=== PATIENT | female | born 1955 | race Caucasian/White ===

== ENCOUNTER → 2019-03-09 | Day surgery (SDC) | payer OTHER ==
[~2019-03-09] MED LIST: Lactated Ringers 1,000 ML IV SCH; Propofol 200 MG/20 ML SDV IV ONE; Sodium Chloride 0.9% 1,000 ML IV SCH
--- NOTE | 2019-03-09 13:49 | OR ---
DATE OF OPERATION: 03/09/2019 PREOPERATIVE DIAGNOSIS: SCREENING COLONOSCOPY. POSTOPERATIVE DIAGNOSIS: SCREENING COLONOSCOPY. SURGEON: Deshawn Rios MD PROCEDURE: FULL-LENGTH COLONOSCOPY. ANESTHESIA: MAC via BEARING MACHINE OPERATOR. COMPLICATIONS: None. SPECIMEN: None. FINDINGS: Normal full-length colonoscopy. RECOMMENDATIONS: Followup colonoscopy every 10 years. INDICATIONS: The patient was in for routine physical. She is overdue for a screening colonoscopy. DESCRIPTION OF PROCEDURE: The patient was prepped and draped, placed in the left lateral decubitus position. A lubricated Olympus colonoscope was inserted and easily advanced to the cecum. Direct visualization of the ileocecal valve and appendiceal orifice was accomplished. The bowel prep was fine. Upon withdrawal of the scope throughout the entire length of the colon, I could find no signs of polyps, mass, ulcerations, or bleeding sites. No vascular abnormalities or signs of colitis. Very tortuous colon, but visualization was good. No gross diverticulosis seen. The rectal vault was benign. Retroflexion of the scope in the rectum showed no anal lesions. Air was suctioned, scope removed without complication. CARA/SARITA /[id number]
== END ==
LOC: CC.SDS 09:39
PROVIDERS: ATTEND Family Medicine
DX: Z12.11 Encounter for screening for malignant neoplasm of colon (principal); I10 Essential (primary) hypertension; E87.6 Hypokalemia; E53.8 Deficiency of other specified B group vitamins; F41.9 Anxiety disorder, unspecified; F32.9 Major depressive disorder, single episode, unspecified; E66.9 Obesity, unspecified; R79.0 Abnormal level of blood mineral; Z68.35 Body mass index [BMI] 35.0-35.9, adult; Z98.84 Bariatric surgery status; Z79.899 Other long term (current) drug therapy
CPT/HCPCS: J2704

== ENCOUNTER 2023-06-05 13:54 | Emergency (ER) | payer OTHER ==
[2023-06-05] MEDS ORDERED: Acetaminophen 500 MG Tab PO ONE (13:56)
[2023-06-05] MEDS ORDERED: Sodium Chloride 0.9% 1,000 ML IV ONE (14:18)
[2023-06-05 14:29] LABS: BASOPHILS ABSOLUTE AUTO 0.06 10^3/uL (0.00-0.50); BASOPHILS PERCENT AUTO 0.4 % (0-1); EOSINOPHILS ABSOLUTE AUTO 0.03 10^3/uL (0.00-1.50); EOSINOPHILS PERCENT AUTO 0.2 % (0-6); HEMATOCRIT 36.8 % (37.0-47.0); HEMOGLOBIN 12.2 g/dL (12.0-16.0); IMMATURE GRAN ABSOLUTE AUTO 0.04 10^3/uL (0.00-0.49); IMMATURE GRAN PERCENT AUTO 0.3 % (0.0-4.9); LYMPHOCYTES PERCENT AUTO 5.9 % (24-44); MEAN CORPUSCULAR HEMOGLOBIN 28.1 pg (27.0-32.0); MEAN CORPUSCULAR HGB CONC 33.2 g/dL (32.0-36.0); MEAN CORPUSCULAR VOLUME 84.8 fL (83.0-97.0); MONOCYTES ABSOLUTE AUTO 1.82 10^3/uL (0.00-1.50); NEUTROPHILS PERCENT AUTO 81.2 % (41-71); PLATELET COUNT,PLT 168 10^3/uL (150-400); RED BLOOD CELL COUNT 4.34 x10^6/uL (4.00-5.50); WHITE BLOOD CELL COUNT,WBC 15.2 10^3/uL (4.0-11.0)
[2023-06-05 14:49] LABS: ALBUMIN 3.4 g/dL (3.4-5.0); BILIRUBIN TOTAL 0.7 mg/dL (0.0-1.0); CALCIUM 8.4 mg/dL (8.4-10.1); CREATININE 1.2 mg/dL (0.6-1.0); EST CRCL DRUG DOSING (CG) 40.94 mL/min; POTASSIUM,K 3.5 mEq/L (3.5-5.0); PROTEIN TOTAL,TP 7.4 g/dL (6.4-8.2)
[2023-06-05 14:54] LABS: APPEARANCE,URINE CLEAR (CLEAR); BILIRUBIN,URINE NEGATIVE (NEGATIVE); COLOR,URINE YELLOW (YELLOW); GLUCOSE,URINE NEGATIVE (NEGATIVE); KETONES,URINE NEGATIVE (NEGATIVE); LEUKOCYTE ESTERASE,URINE NEGATIVE (NEGATIVE); NITRITE,URINE NEGATIVE (NEGATIVE); OCCULT BLOOD,URINE SMALL (NEGATIVE); PH,URINE 5.5 (4.5-8.0); PROTEIN,URINE 30 mg/dL (NEGATIVE); UROBILINOGEN,URINE 0.2 EU/dL (0.2-1.0)
[2023-06-05 15:04] LABS: BACTERIA,URINE OCCASIONAL /HPF (NOT SEEN); RBC,URINE 0-5 /HPF (0-5); SQUAMOUS EPITHELIAL CELLS,UR OCCASIONAL /HPF (NOT SEEN); WBC,URINE 0-5 /HPF (0-5)
[2023-06-05] MEDS ORDERED: Sodium Chloride 0.9% 10 ML Syringe FLUSH PRN (15:33)
[2023-06-05] MEDS ORDERED: Sodium Chloride 0.9% 1,000 ML IV SCH (15:45)
[2023-06-05] MEDS ORDERED: Levofloxacin/Dextrose 5%-Water 750 MG in Premix Bag 1 BAG IV ONE (18:29)
== END 2023-06-05 20:45 | disposition home or self-care (01) ==
LOC: CC.ED 13:54
DX: J18.9 Pneumonia, unspecified organism (principal); Z79.899 Other long term (current) drug therapy; Z20.822 Contact with and (suspected) exposure to COVID-19
CPT/HCPCS: 36415; 71046; 80053; 81001; 83605; 85025; 87040; 96361; 96365; 96366; 99284; 99284-25; A9270-GY; J1956; J7030; U0002

== ENCOUNTER 2023-10-27 06:27 | Emergency (ER) | payer OTHER ==
[2023-10-27] MEDS ORDERED: Sodium Chloride 0.9% 10 ML Syringe FLUSH PRN (06:44)
[2023-10-27 07:02] LABS: APPEARANCE,URINE SLIGHTLY CLOUDY (CLEAR); BILIRUBIN,URINE NEGATIVE (NEGATIVE); COLOR,URINE YELLOW (YELLOW); GLUCOSE,URINE 100 mg/dL (NEGATIVE); KETONES,URINE NEGATIVE (NEGATIVE); LEUKOCYTE ESTERASE,URINE SMALL (NEGATIVE); NITRITE,URINE POSITIVE (NEGATIVE); OCCULT BLOOD,URINE MODERATE (NEGATIVE); PROTEIN,URINE 100 mg/dL (NEGATIVE)
[2023-10-27 07:08] LABS: BASOPHILS ABSOLUTE AUTO 0.04 10^3/uL (0.00-0.50); BASOPHILS PERCENT AUTO 0.3 % (0-1); HEMATOCRIT 39.1 % (37.0-47.0); HEMOGLOBIN 12.7 g/dL (12.0-16.0); IMMATURE GRAN ABSOLUTE AUTO 0.04 10^3/uL (0.00-0.49); IMMATURE GRAN PERCENT AUTO 0.3 % (0.0-4.9); LYMPHOCYTES ABSOLUTE AUTO 0.81 10^3/uL (0.60-5.00); MEAN CORPUSCULAR HEMOGLOBIN 28.5 pg (27.0-32.0); MEAN CORPUSCULAR HGB CONC 32.5 g/dL (32.0-36.0); MEAN CORPUSCULAR VOLUME 87.7 fL (83.0-97.0); MONOCYTES ABSOLUTE AUTO 1.24 10^3/uL (0.00-1.50); MONOCYTES PERCENT AUTO 9.1 % (0-10); NEUTROPHILS ABSOLUTE AUTO 11.45 x10^3/uL (1.80-8.00); NEUTROPHILS PERCENT AUTO 84.3 % (41-71); PLATELET COUNT,PLT 153 10^3/uL (150-400); RED BLOOD CELL COUNT 4.46 x10^6/uL (4.00-5.50); WHITE BLOOD CELL COUNT,WBC 13.6 10^3/uL (4.0-11.0)
[2023-10-27 07:10] LABS: BACTERIA,URINE MANY /HPF (NOT SEEN); EPITHELIAL CELLS,URINE NOT SEEN /HPF (NOT SEEN); WBC,URINE >100 /HPF (0-5)
[2023-10-27] MEDS: HYDROmorphone 0.5 MG/0.5 ML Syringe IVPUSH ONE (07:20)
[2023-10-27] MEDS: Ondansetron 4 MG/2 ML SDV IVPUSH STA (07:21)
[2023-10-27] MEDS: Sodium Chloride 0.9% 1,000 ML IV ONE (07:28)
[2023-10-27 07:29] LABS: ALBUMIN 3.4 g/dL (3.4-5.0); BILIRUBIN TOTAL 0.8 mg/dL (0.0-1.0); C-REACTIVE PROTEIN 7.72 mg/dL (<=0.50); CALCIUM 8.5 mg/dL (8.4-10.1); CREATININE 1.4 mg/dL (0.6-1.0); POTASSIUM,K 4.1 mEq/L (3.5-5.0); PROTEIN TOTAL,TP 7.3 g/dL (6.4-8.2)
[2023-10-27 08:20] LABS: LACTIC ACID 1.5 mmol/L (0.4-2.0)
== END 2023-10-27 11:20 | disposition home or self-care (01) ==
LOC: CC.ED 06:27
CPT/HCPCS: 36415; 74176; 80053; 81001; 83605; 85025; 86140; 87040; 87077; 87086; 87088; 87186; 96361; 96374; 96375; 99284-25; J1170; J2405; J7030

== ENCOUNTER 2023-12-08 06:22 | Day surgery (SDC) | payer OTHER, MEDICARE ==
[2023-12-08] MEDS: Cyclopentolat/Tropic/Phenyleph 1 ML Ophth Drop SDV EYERT SCH (06:40)
[2023-12-08] MEDS: Lactated Ringers 1,000 ML IV SCH (06:41)
[2023-12-08] MEDS ORDERED: Midazolam 1 MG/ML 2 ML SDV ONE (07:20)
[2023-12-08] MEDS: Brimonidine 0.2% Ophth Soln 5 ML Bottle EYERT ONE (07:30)
[2023-12-08] MEDS: MOXIFLOXACIN PF in BSS 1 MG/ML VIAL ICORN ONE (07:30)
[2023-12-08] MEDS: Povidone-Iodine 5% Sterile Ophth Soln 30 ML Bottle EYERT ONE (07:30)
[2023-12-08] MEDS: Lidocaine 1% 5 ML VIAL IARTIC ONE (07:30)
[2023-12-08] MEDS: Tetracaine HCl/PF 0.5% 4 ML Bottle EYERT ONE (07:30)
[2023-12-08] MEDS: acetaZOLAMIDE 500 MG Cap.ER PO ONE (08:04)
== END 2023-12-08 08:50 | disposition home or self-care (01) ==
LOC: CC.SDS 06:22
PROVIDERS: ATTEND Ophthalmology
DX: H26.9 Unspecified cataract (principal); F41.9 Anxiety disorder, unspecified; F32.A Depression, unspecified; Z79.899 Other long term (current) drug therapy
CPT/HCPCS: A9270-GY; J2250; J3490; J7120

== ENCOUNTER 2024-01-05 06:24 | Day surgery (SDC) | payer OTHER, MEDICARE ==
[2024-01-05] MEDS: Lactated Ringers 1,000 ML IV SCH (06:42)
[2024-01-05] MEDS: Cyclopentolat/Tropic/Phenyleph 1 ML Ophth Drop SDV EYELF SCH (06:42)
[2024-01-05] MEDS ORDERED: Midazolam 1 MG/ML 2 ML SDV ONE (07:00)
[2024-01-05] MEDS: Phenyleprhine/Ketorolac 4 ML Vial IO ONE (07:13)
[2024-01-05] MEDS: Povidone-Iodine 5% Sterile Ophth Soln 30 ML Bottle EYELF ONE (07:13)
[2024-01-05] MEDS: MOXIFLOXACIN PF in BSS 1 MG/ML VIAL ICORN ONE (07:13)
[2024-01-05] MEDS: Tetracaine HCl/PF 0.5% 4 ML Bottle EYELF ONE (07:13)
[2024-01-05] MEDS: Lidocaine 1% 5 ML VIAL INJECT ONE (07:13)
[2024-01-05] MEDS: Brimonidine 0.2% Ophth Soln 5 ML Bottle EYELF ONE (07:13)
[2024-01-05] MEDS: acetaZOLAMIDE 500 MG Cap.ER PO ONE (07:58)
== END 2024-01-05 08:30 | disposition home or self-care (01) ==
LOC: CC.SDS 06:24
PROVIDERS: ATTEND Ophthalmology
DX: H26.9 Unspecified cataract (principal); F32.A Depression, unspecified; F41.9 Anxiety disorder, unspecified; Z98.84 Bariatric surgery status; Z79.899 Other long term (current) drug therapy
CPT/HCPCS: 00142; A9270-GY; J1097; J2250; J3490; J7120